=== PATIENT | female | born 1950 | race Caucasian/White ===

== ENCOUNTER 2016-07-28 15:38 | Emergency (ER) | payer OTHER ==
[2016-07-28] MEDS ORDERED: LIDOCAINE 4%/TETRACAINE 0.5%/EPI 0.18% 5 ML TOPICAL SOLN TOP ONE (16:19)
--- NOTE | 2016-07-28 16:19 | ER Document Report ---
HPI - HPI Patient complains to provider of: tripped and hit her head on a table Onset: Just prior to arrival Onset/Duration: Sudden Pain Level: 2 Context: 65-year-old female was carrying returns at [facility] and tripped backwards against a display and hit her head on a table. No loss of consciousness or dizziness. Mild scalp tenderness. Tetanus is current. No cervical spine pain. No anticoagulates. Associated Symptoms: None Exacerbated by: Denies Relieved by: Denies - ROS ROS below otherwise negative: Yes Systems Reviewed and Negative: Yes All other systems reviewed and negative - DERM Skin Color: Normal Past Medical History - General Information source: Patient - Social History Smoking Status: Unknown if Ever Smoked Frequency of alcohol use: None Drug Abuse: None Lives with: Spouse/Significant other Family History: Reviewed & Not Pertinent Patient has suicidal ideation: No Patient has homicidal ideation: No - Medical History Medical History: Negative Renal/ Medical History: Denies: Hx Peritoneal Dialysis Surgical Hx: Negative Vertical Provider Document - CONSTITUTIONAL Agree With Documented VS: Yes Exam Limitations: No Limitations - INFECTION CONTROL TRAVEL OUTSIDE OF THE [place] IN LAST 30 DAYS: No - HEENT HEENT: Normocephalic, PERRLA. negative: Atraumatic Notes: large hematoma posterior occiput, 5mm partial thickness cut above it,, no hemotympanums, no rhinorrhea, no Saleh sign, no periorbital ecchymosis. - NECK Neck: Supple - non tender c spine - RESPIRATORY Respiratory: Breath Sounds Normal, No Respiratory Distress O2 Sat by Pulse Oximetry: 97 - CARDIOVASCULAR Cardiovascular: Regular Rate, Regular Rhythm - MUSCULOSKELETAL/EXTREMETIES Musculoskeletal/Extremeties: MAEW, FROM - NEURO Level of Consciousness: Awake, Alert, Appropriate Motor/Sensory: No Motor Deficit, No Sensory Deficit - DERM Integumentary: Warm, Dry, Laceration - See above Course - Re-evaluation Re-evalutation: 07/30/16 21:21 Late entry: ct was negative, the wound did not need closing, bacitracin placed. - Vital Signs Vital signs: Temp Pulse Resp BP Pulse Ox 97.5 F 72 18 165/84 H 97 07/28/16 15:44 07/28/16 15:44 07/28/16 15:44 07/28/16 15:44 07/28/16 15:44 Discharge - Discharge Clinical Impression: Hematoma, Laceration Head injury Qualifiers: Encounter type: initial encounter Qualified Code(s): S09.90XA - Unspecified injury of head, initial encounter Condition: Stable Disposition: HOME, SELF-CARE Instructions: Antibiotic Ointment Protection ([facility]), Care of Stapled Wounds ([facility] ), Head Injury Precautions ([facility]), Scalp Hematoma ([facility])
[2016-07-28 17:46] VITALS: BP 151/77
== END 2016-07-28 17:34 | disposition home or self-care (01) ==
LOC: ER 15:38
DX: S00.03XA Contusion of scalp, initial encounter (principal); S09.90XA Unspecified injury of head, initial encounter; R51 Headache; W18.40XA Slipping, tripping and stumbling without falling, unspecified, initial encounter
CPT/HCPCS: 99284; 70450; J3490

== ENCOUNTER → 2017-04-11 | Outpatient (CLI) | payer MEDICARE, OTHER ==
--- NOTE | 2017-04-12 10:19 | RADIOLOGY REPORT (SQ) ---
EXAM DESCRIPTION: PET CT SKULL/THIGH COMPLETED DATE/TIME: 04/11/2017 9:03 pm REASON FOR STUDY: LUNG MASS R91.8 OTHER NONSPECIFIC ABNORMAL FINDING OF LUNG FIELD COMPARISON: [facility] CT chest 03/22/2017 RADIONUCLIDE AND DOSE: 12.5 mCi F18 FDG The route of agent administration: Intravenous FASTING BLOOD SUGAR: 99 mg/dl CONTRAST TYPE AND DOSE: No CT contrast given. TECHNIQUE: Blood glucose level was verified. Above dose of FDG was injected intravenously. 2-D seg mented attenuation correction images were obtained from the base of the skull to the midthighs. Nonc ontrast CT images were obtained for attenuation correction and fusion with emission images. CT image s were performed without oral or intravenous contrast and are not sensitive for parenchymal lesions. A series of overlapping emission PET images were obtained. Images reviewed and manipulated at [facility] work station by the radiologist. Images stored on PACS. LIMITATIONS: None. FINDINGS: HEAD AND NECK: No areas of abnormal metabolic activity in the soft tissues of the head and neck. CHEST: In the left upper lobe, abutting the major fissure at 12 mm ground-glass opacity is present on axial image 63. SUV less than 1.0. ABDOMEN AND PELVIS: No areas of abnormal metabolic activity in the abdomen or pelvis. Expected physi ologic activity is present in the genitourinary system and bowel. PROXIMAL LOWER EXTREMITIES: No areas of abnormal metabolic activity in the soft tissues of the lower extremities. BONES: No abnormal metabolic activity in the visualized skeleton. ADDITIONAL CT FINDINGS: Diffuse centrilobular emphysema throughout both lungs. 4 mm noncalcified sub pleural granulomas in the right upper lobe axial image 81, and in the left lower lobe axial image 81. Minimal bandlike scarring or atelectasis right middle lobe, non metabolic. OTHER: Liver background activity 2.2 SUV. Blood pool background activity 1.8 SUV IMPRESSION: 12 mm ground-glass nodule in the posterior aspect left upper lobe near the major fissure . This is non metabolic by PET-CT. Continued CT surveillance recommended. Biopsy may prove difficu lt due to nodule location and close proximity to the major fissure TECHNICAL DOCUMENTATION: JOB ID: [id number] [employer]- All Rights Reserved
== END ==
LOC: WI 17:36
PROVIDERS: ATTEND Internal Medicine Medical Oncology
DX: R91.8 Other nonspecific abnormal finding of lung field (principal)
CPT/HCPCS: 78815; A9552

== ENCOUNTER → 2017-09-26 | Outpatient (CLI) | payer MEDICARE, OTHER ==
--- NOTE | 2017-09-28 08:38 | RADIOLOGY REPORT (SQ) ---
EXAM DESCRIPTION: PET CT SKULL/THIGH COMPLETED DATE/TIME: 09/26/2017 6:23 pm REASON FOR STUDY: R91.1 LUNG MASS R91.1 SOLITARY PULMONARY NODULE COMPARISON: Report [facility] CT chest 12/26/2016 RADIONUCLIDE AND DOSE: 10.9 mCi F18 FDG The route of agent administration: Intravenous FASTING BLOOD SUGAR: 83 mg/dl CONTRAST TYPE AND DOSE: No CT contrast given. TECHNIQUE: Blood glucose level was verified. Above dose of FDG was injected intravenously. 2-D seg mented attenuation correction images were obtained from the base of the skull to the midthighs. Nonc ontrast CT images were obtained for attenuation correction and fusion with emission images. CT image s were performed without oral or intravenous contrast and are not sensitive for parenchymal lesions. A series of overlapping emission PET images were obtained. Images reviewed and manipulated at [facility] work station by the radiologist. Images stored on PACS. LIMITATIONS: None. FINDINGS: HEAD AND NECK: No areas of abnormal metabolic activity in the soft tissues of the head and neck. CHEST: A 10 mm ground-glass density is present in the posterior aspect left upper lobe on axial image 68. This is unchanged from PET-CT 04/11/2017 with SUV less than 1.0. Continued periodic surveillanc e with CT recommended. No other significant metabolically active lung lesions are present. ABDOMEN AND PELVIS: No areas of abnormal metabolic activity in the abdomen or pelvis. Expected physi ologic activity is present in the genitourinary system and bowel. PROXIMAL LOWER EXTREMITIES: No areas of abnormal metabolic activity in the soft tissues of the lower extremities. BONES: No abnormal metabolic activity in the visualized skeleton. ADDITIONAL CT FINDINGS: Minimal coronary artery calcification. Obstructive lung disease. No additio nal significant findings on the noncontrast CT images. OTHER: Liver background activity 2.4 SUV. Blood pool background activity 1.7 SUV IMPRESSION: 10 mm ground-glass density nodule in the posterior left upper lobe abutting the major fi ssure. Non metabolic by PET-CT. Continued CT surveillance recommended TECHNICAL DOCUMENTATION: JOB ID: [id number]- All Rights Reserved Reading location - IP/workstation name: [email or web address]-[email or web address]
== END ==
LOC: RAD 16:30
PROVIDERS: ATTEND Surgery
DX: R91.1 Solitary pulmonary nodule (principal)
CPT/HCPCS: 78815; A9552

== ENCOUNTER → 2018-02-11 | Outpatient (CLI) | payer MEDICARE, OTHER ==
--- NOTE | 2018-02-12 09:54 | RADIOLOGY REPORT (SQ) ---
EXAM DESCRIPTION: PET CT SKULL/THIGH COMPLETED DATE/TIME: 02/11/2018 10:14 pm REASON FOR STUDY: LUNG MASS R91.8 OTHER NONSPECIFIC ABNORMAL FINDING OF LUNG FIELD COMPARISON: 09/26/2017 and 04/11/2017. RADIONUCLIDE AND DOSE: 10 mCi F18 FDG The route of agent administration: Intravenous FASTING BLOOD SUGAR: 92 mg/dl CONTRAST TYPE AND DOSE: No CT contrast given. TECHNIQUE: Blood glucose level was verified. Above dose of FDG was injected intravenously. 2-D seg mented attenuation correction images were obtained from the base of the skull to the midthighs. Nonc ontrast CT images were obtained for attenuation correction and fusion with emission images. CT image s were performed without oral or intravenous contrast and are not sensitive for parenchymal lesions. A series of overlapping emission PET images were obtained. Images reviewed and manipulated at [facility][note 3][employer] work station by the radiologist. Images stored on PACS. LIMITATIONS: None. FINDINGS: HEAD AND NECK: No areas of abnormal metabolic activity in the soft tissues of the head and neck. 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 On the current study there are a few faint indistinct ground-glass opacities with no ab normal activity. Also again seen is a 4 mm nodule in the right lung, presumably a non calcified gran uloma. No areas of abnormal metabolic activity in the chest. ABDOMEN AND PELVIS: No areas of abnormal metabolic activity in the abdomen or pelvis. Expected physi ologic activity is present in the genitourinary system and bowel. PROXIMAL LOWER EXTREMITIES: No areas of abnormal metabolic activity in the soft tissues of the lower extremities. BONES: Increased activity in the left humeral head secondary to a nondisplaced fracture. No other ab normal metabolic activity in the visualized skeleton. ADDITIONAL CT FINDINGS: Calcified granulomas in the spleen. Colonic diverticulosis. No additional s ignificant findings on the noncontrast CT images. Background blood pool activity mean SUV 1.66. Katelin kground liver activity mean SUV 2.02. OTHER: No other significant findings. IMPRESSION: 1. INTERVAL LEFT UPPER LOBECTOMY. A FEW SCATTERED GROUND-GLASS OPACITIES AND SMALL PULMONARY NODULES WITH NO ABNORMAL ACTIVITY. NO EVIDENCE OF METASTATIC INVOLVEMENT BASED ON PET IMAGING. 2. NONDISPLACED FRACTURE OF THE LEFT HUMERAL HEAD. TECHNICAL DOCUMENTATION: JOB ID: [id number]- All Rights Reserved Reading location - IP/workstation name: [email or web address]
== END ==
LOC: RAD 17:38
PROVIDERS: ATTEND Internal Medicine Medical Oncology
DX: R91.8 Other nonspecific abnormal finding of lung field (principal); S42.295A Other nondisplaced fracture of upper end of left humerus, initial encounter for closed fracture; X58.XXXA Exposure to other specified factors, initial encounter
CPT/HCPCS: 78815; A9552

== ENCOUNTER → 2018-04-29 | Outpatient (CLI) | payer MEDICARE, OTHER ==
--- NOTE | 2018-04-30 11:53 | RADIOLOGY REPORT (SQ) ---
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 TECHNIQUE: Blood glucose level was verified. Above dose of FDG was injected intravenously. 2-D seg mented attenuation correction images were obtained from the base of the skull to the midthighs. Nonc ontrast CT images were obtained for attenuation correction and fusion with emission images. CT image s were performed without oral or intravenous contrast and are not sensitive for parenchymal lesions. A series of overlapping emission PET images were obtained. Images reviewed and manipulated at [facility] work station by the radiologist. Images stored on PACS. LIMITATIONS: None. FINDINGS: HEAD AND NECK: No areas of abnormal metabolic activity in the soft tissues of the head and neck. CHEST: No areas of abnormal metabolic activity in the chest. Specifically, no lung parenchymal or me diastinal uptake identified. Old surgical clips post left upper lobectomy. ABDOMEN AND PELVIS: There is diffuse increased uptake throughout the colon, nonspecific. Colon activ ity ranges from 7 to 8.3 SUV. PROXIMAL LOWER EXTREMITIES: No areas of abnormal metabolic activity in the soft tissues of the lower extremities. BONES: There is diffuse bone marrow activity, ranging from 4.6 [address] FINDINGS: No additional significant findings on the noncontrast CT images. OTHER: Blood pool background activity 1.6 SUV. Liver background activity 2.3 SUV. IMPRESSION: Diffuse bone marrow and colon activity, likely related to treatment response. TECHNICAL DOCUMENTATION: JOB ID: [id number] [employer]- All Rights Reserved Reading location - IP/workstation name: [email or web address]
== END ==
LOC: RAD 17:45
PROVIDERS: ATTEND Internal Medicine Medical Oncology
DX: C34.12 Malignant neoplasm of upper lobe, left bronchus or lung (principal)
CPT/HCPCS: 78815; A9552

== ENCOUNTER → 2018-11-06 | Outpatient (CLI) | payer MEDICARE, OTHER ==
--- NOTE | 2018-11-07 09:19 | RADIOLOGY REPORT (SQ) ---
EXAM DESCRIPTION: PET CT SKULL/THIGH COMPLETED DATE/TIME: 11/06/2018 10:33 pm REASON FOR STUDY: C34.12 MALIGNANT NEOPLASM OF UPPER LOBE, LEFT BRONCHUS OR LUNG C34.12 MALIGNANT N EOPLASM OF UPPER LOBE, LEFT BRONCHUS OR JOSE ELIAS COMPARISON: 04/29/2018 RADIONUCLIDE AND DOSE: 11.04 mCi F18 FDG The route of agent administration: Intravenous FASTING BLOOD SUGAR: 100 mg/dl CONTRAST TYPE AND DOSE: No CT contrast given. TECHNIQUE: Blood glucose level was verified. Above dose of FDG was injected intravenously. 2-D seg mented attenuation correction images were obtained from the base of the skull to the midthighs. Nonc ontrast CT images were obtained for attenuation correction and fusion with emission images. CT image s were performed without oral or intravenous contrast and are not sensitive for parenchymal lesions. A series of overlapping emission PET images were obtained. Images reviewed and manipulated at [facility] work station by the radiologist. Images stored on PACS. LIMITATIONS: None. FINDINGS: HEAD AND NECK: No areas of abnormal metabolic activity in the soft tissues of the head and neck. CHEST: Postsurgical changes from the left upper lobectomy. No focal areas of increased FDG uptake wi thin the thorax. ABDOMEN AND PELVIS: No areas of abnormal metabolic activity in the abdomen or pelvis. Expected physi ologic activity is present in the genitourinary system and bowel. PROXIMAL LOWER EXTREMITIES: No areas of abnormal metabolic activity in the soft tissues of the lower extremities. BONES: Mild increased activity at the left glenohumeral joint (max SUV 4.3) without CT correlate, lik sophia degenerative. No other abnormal metabolic activity in the visualized skeleton. ADDITIONAL CT FINDINGS: No evidence of acute process. Postsurgical change from the left upper lobect ash. Stable scattered subcentimeter nodular opacities and areas of pleural thickening without increa sed uptake. Scattered coronary atherosclerosis. Scattered splenic calcified granuloma. No evidence of acute intra-abdominal process. Aortoiliac atherosclerosis. Scattered colonic diverticula. OTHER: Background liver activity 3.4. IMPRESSION: 1. No abnormal areas of focal increased FDG uptake to suggest residual or recurrent dis ease. TECHNICAL DOCUMENTATION: JOB ID: [id number] [employer]- All Rights Reserved Reading location - IP/workstation name: [email or web address]
== END ==
LOC: RAD 11-04 15:08
PROVIDERS: ATTEND Internal Medicine Medical Oncology
DX: C34.12 Malignant neoplasm of upper lobe, left bronchus or lung (principal)
CPT/HCPCS: 78815; A9552